=== PATIENT | female | born 1950 | race Caucasian/White ===

== ENCOUNTER 2018-07-30 11:17 | Emergency (ER) | payer MEDICARE, BC ==
--- OUTSIDE RECORDS SUMMARY | 2018-07-30 11:24 | XMS REPORT | Continuity of Care Document ---
:1950 External Reference #:[id number] Author Name Juve Fam, OD Address [address] [place] [address] Care Team Providers Name Role Phone Claudio JONES, Shaista Care Team Information Electric Serviceman Unavailable Shaista Snyder MD Primary Care Physician Unavailable Payers Date Identification Numbers Payment Provider Subscriber Policy Number: [id number] [employer] [place] PayID: [id number] [address] [place] [address] Policy Number: [id number] [employer] [place] [employer] PayID: [id number] [address] [place] [address] Advance Directives Description No Information Available Problems Date Description Provider Status Onset: 05/11/2013 Regular astigmatism Arjun Bailey M.D. Active Onset: 05/11/2013 Vitreous degeneration Arjun Bailey M.D. Active Onset: 05/11/2013 Open-angle glaucoma Arjun Bailey M.D. 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 Active stage Onset: 06/24/2015 Other chorioretinal scars, left eye Arjun Bailey M.D. Active Family History Date Family Member(s) Observation Comments Father High BP Father Diabetes Father Heart Disease Father Cancer Mother Cataract Mother Cancer Social History Type Date Description Comments Sex Unknown ETOH Use Denies alcohol use Tobacco Use Start: Unknown Patient has never smoked Smoking Status Reviewed: 07/12/18 Patient has never smoked Allergies, Adverse Reactions, Alerts Date Description Reaction Status Severity Comments 05/11/2013 Penicillin Active 05/24/2014 Sulfa Antibiotics Active 05/24/2014 Bactrim Active 05/24/2014 Keflex Active 07/08/2016 Xarelto Active Medications Medication Date Status Form Strength Qnty SIG Indications Ordering Provider Latanoprost 12/17 Active Solution 0.005% 7.5un 1 drops Juve its both Fam, eyes OD every night Timolol Maleate 07/12 Active GFS 0.5% 15ml one drop Juve Ophthalmic Gel every Fam, Forming morning OD OD only Alendronate Sodium Active Tablets 70mg Stulb, /0000 Shaka JONES Sertraline HCL Active Tablets 100mg Stulb, /0000 Shaka JONES Omeprazole Active Capsules 20mg Stulb, /0000 DR Shaka JONES Hydrochlorothiazide Active Tablets 25mg Hannah, /0000 Agueda Jean Vesicare Active Tablets 5mg Jann, /0000 Norma Warfarin Sodium Active Tablets 5mg Trae, /0000 JUAN ALBERTO Perea Poly-Iron 150 Active Capsules 150mg Take One Unknown /0000 Capsule By Mouth Every Day Vitamin C Active Capsules 500mg Unknown /0000 Latanoprost 05/10 Hx Solution 0.005% 2.5un Instill its One Drop Bailey, - In Each M.D. 12/17 Eye AT Bedtime Xarelto Hx Tablets 20mg Take One Unknown /0000 Tablet - By Mouth 07/08 Day Immunizations Description No Information Available Vital Signs Date Vital Result Comment 07/12/2018 8:49am Intraocular Pressure Right Eye 12 mmHg Intraocular Pressure Left Eye 12 mmHg 04/13/2018 9:15am Intraocular Pressure Right Eye 12 mmHg Intraocular Pressure Left Eye 13 mmHg 01/12/2018 9:12am Intraocular Pressure Right Eye 11 mmHg Intraocular Pressure Left Eye 13 mmHg 10/12/2017 8:27am Intraocular Pressure Right Eye 14 mmHg Intraocular Pressure Left Eye 16 mmHg 07/12/2017 10:02am Intraocular Pressure Right Eye 17 mmHg Intraocular Pressure Left Eye 16 mmHg 04/12/2017 9:29am Intraocular Pressure Right Eye 16 mmHg Intraocular Pressure Left Eye 16 mmHg 01/11/2017 9:15am Intraocular Pressure Right Eye 14 mmHg Intraocular Pressure Left Eye 13 mmHg 10/09/2016 9:14am Intraocular Pressure Right Eye 15 mmHg Intraocular Pressure Left Eye 15 mmHg 07/08/2016 8:13am Intraocular Pressure Right Eye 14 mmHg Intraocular Pressure Left Eye 13 mmHg 04/08/2016 8:12am Intraocular Pressure Right Eye 14 mmHg Intraocular Pressure Left Eye 13 mmHg 10/04/2015 8:32am Intraocular Pressure Right Eye 15 mmHg Intraocular Pressure Left Eye 13 mmHg 06/24/2015 10:45am Intraocular Pressure Right Eye 14 mmHg Intraocular Pressure Left Eye 14 mmHg 03/21/2015 8:48am Intraocular Pressure Right Eye 15 mmHg Intraocular Pressure Left Eye 14 mmHg 12/07/2014 2:32pm Intraocular Pressure Right Eye 16 mmHg Intraocular Pressure Left Eye 15 mmHg 08/27/2014 8:57am Intraocular Pressure Right Eye 16 mmHg Intraocular Pressure Left Eye 15 mmHg 05/24/2014 9:12am Intraocular Pressure Right Eye 15 mmHg Intraocular Pressure Left Eye 14 mmHg 02/21/2014 8:07am Intraocular Pressure Right Eye 16 mmHg Intraocular Pressure Left Eye 13 mmHg 11/17/2013 9:09am Intraocular Pressure Right Eye 16 mmHg Intraocular Pressure Left Eye 12 mmHg 08/18/2013 8:45am Intraocular Pressure Right Eye 16 mmHg Intraocular Pressure Left Eye 14 mmHg 05/11/2013 10:04am Intraocular Pressure Right Eye 15 mmHg Intraocular Pressure Left Eye 13 mmHg Results Description No Information Available Procedures Date Code Description Status 07/12/2018 82415 Fundus Photography W/Interpretation & Report Completed 07/12/2018 46264 Refraction Completed 07/12/2018 75988 Eye Exam Est Comprehensive Completed 04/13/2018 93956 Eye Exam Est Intermediate Completed 01/12/2018 43325 Oct, Optic Nerve Completed 01/12/2018 04207 Eye Exam Est Intermediate Completed 10/12/2017 46560 Visual Field Exam Extended, Unilateral Or Bilateral Completed 10/12/2017 05773 Eye Exam Est Intermediate Completed 07/12/2017 91230 Eye Exam Est Comprehensive Completed 07/12/2017 95045 Refraction Completed 07/12/2017 21313 Ophthalmoscopy Subsequent Completed 07/12/2017 19365 Fundus Photography W/Interpretation & Report Completed 04/12/2017 10816 Eye Exam Est Intermediate Completed 01/11/2017 12110 Oct, Optic Nerve Completed 01/11/2017 17894 Eye Exam Est Intermediate Completed 10/09/2016 14093 Visual Field Exam Extended, Unilateral Or Bilateral Completed 10/09/2016 71288 Eye Exam Est Intermediate Completed 07/08/2016 61512 Eye Exam Est Comprehensive Completed 07/08/2016 41617 Ophthalmoscopy Subsequent Completed 07/08/2016 04285 Fundus Photography W/Interpretation & Report Completed 04/08/2016 42418 Eye Exam Est Intermediate Completed 01/07/2016 26296 Oct, Optic Nerve Completed 01/07/2016 50584 Oct, Optic Nerve Completed 10/04/2015 19896 Visual Field Exam Extended, Unilateral Or Bilateral Completed 10/04/2015 98015 Eye Exam Est Intermediate Completed 06/24/2015 05132 Fundus Photography W/Interpretation & Report Completed 06/24/2015 87124 Eye Exam Est Comprehensive Completed 03/21/2015 97099 Eye Exam Est Intermediate Completed 12/07/2014 77282 Oct, Optic Nerve Completed 12/07/2014 86742 Eye Exam Est Intermediate Completed 08/27/2014 77794 Visual Field Exam Extended, Unilateral Or Bilateral Completed 08/27/2014 00527 Eye Exam Est Intermediate Completed 05/24/2014 19451 Eye Exam Est Comprehensive Completed 05/24/2014 79855 Refraction Completed 05/24/2014 76742 Ophthalmoscopy Subsequent Completed 05/24/2014 29043 Fundus Photography W/Interpretation & Report Completed 02/21/2014 32384 Eye Exam Est Intermediate Completed 11/17/2013 98634 Oct, Optic Nerve Completed 11/17/2013 42114 Eye Exam Est Intermediate Completed 08/18/2013 79608 Visual Field Exam Extended, Unilateral Or Bilateral Completed 08/18/2013 46215 Eye Exam Est Intermediate Completed 05/11/2013 77763 Eye Exam Est Intermediate Completed 05/11/2013 36969 Refraction Completed 05/11/2013 88530 Ophthalmoscopy Subsequent Completed 05/11/2013 20684 Fundus Photography W/Interpretation & Report Completed 08/06/2011 35247 Visual Field Exam Extended, Unilateral Or Bilateral Completed 08/06/2011 30593 Eye Exam Est Intermediate Completed 04/30/2011 41775 Ophthalmoscopy Subsequent Completed 04/30/2011 46461 Eye Exam Est Intermediate Completed 10/24/2010 58950 Ophthalmoscopy Subsequent Completed 10/24/2010 72763 Eye Exam Est Intermediate Completed 10/02/2010 91567 Eye Exam Est Comprehensive Completed 10/02/2010 19480 Ophthalmoscopy Subsequent Completed 07/02/2010 01579 Visual Field Exam Extended, Unilateral Or Bilateral Completed 07/02/2010 11192 Eye Exam Est Intermediate Completed 05/01/2010 30822 Fundus Photography W/Interpretation & Report Completed 05/01/2010 23006 Ophthalmoscopy Subsequent Completed 05/01/2010 07726 Eye Exam Est Comprehensive Completed 05/01/2010 17533 Corneal Pachymetry, Unilateral/Bilateral Completed 12/06/2009 82129 Eye Exam Est Intermediate Completed 09/06/2009 39367 Eye Exam Est Intermediate Completed 05/31/2009 61754 Eye Exam Est Intermediate Completed 05/09/2009 71221 Visual Field Exam Extended, Unilateral Or Bilateral Completed 05/09/2009 22910 Eye Exam Est Intermediate Completed 05/01/2009 09708 Fundus Photography W/Interpretation & Report Completed 05/01/2009 45695 Ophthalmoscopy Initial Completed 05/01/2009 31394 Refraction Completed 05/01/2009 46199 Eye Exam New Comprehensive Completed 05/01/2009 11443 Corneal Pachymetry, Unilateral/Bilateral Completed Encounters Description No Information Available Plan of Treatment 07/12/2018 - Juve Fam, [id number] Primary open-angle glaucoma, bilateral, moderate vegvfA28.092 Other chorioretinal scars, left eyeH25.13 Age-related nuclear cataract, mipcwoicgD27.813 Vitreous degeneration, bilateralFollow up:3 mos VF, sooner PRNH52.13 Myopia, bilateral
[2018-07-30 11:45] VITALS: BP 139/81
--- NOTE | 2018-07-30 12:02 | UC ---
Throat Pain/Nasal Darian HPI - HPI Summary HPI Summary: Patient has been ill with a severe cold for over one week and the past 24 hours she has developed sinus pressure with purulent nasal discharge. - History of Current Complaint Chief Complaint: UCRespiratory Stated Complaint: SINUS ISSUE Time Seen by Provider: 07/30/18 12:01 Hx Obtained From: Patient ?: No Onset/Duration: Gradual Onset - Ill for more than one week. Severity: Moderate Pain Intensity: 5 Cough: None Associated Signs & Symptoms: Positive: Sinus Discomfort, Nasal Discharge - Epiglottits Risk Factors Epiglottis Risk Factors: Negative - Allergies/Home Medications Allergies/Adverse Reactions: Allergies Allergy/AdvReac Type Severity Reaction Status Date / Time cephalexin [From Keflex] Allergy Blisters Verified 07/30/18 11:46 levofloxacin [From Levaquin] Allergy Shakes Verified 07/30/18 11:46 Penicillins Allergy Hives Verified 07/30/18 11:46 Sulfa (Sulfonamide Allergy Shakes Verified 07/30/18 11:46 Antibiotics) trazodone Allergy Unknown Verified 07/30/18 11:46 Reaction Details Home Medications: Home Medications Timolol 0.5% OPTH.JOAN* [Timoptic 0.5% Opth*] 1 drop RIGHT EYE QAM 07/30/18 [ History Confirmed 07/30/18] PMH/Surg Hx/FS Hx/Imm Hx Previously Healthy: Yes Respiratory History: Other - DVT 3 years ago. - Surgical History Surgical History: None Surgery Procedure, Year, and Place: HYSTERECTOMY 1986. FOOT SX: BUNIONECTOMY, TOE STRAIGHTENING. 2007- RIGHT KNEE REPLACEMENT AND CHOLECYSTECTOMY. BREAST BIOPSY 70'S - BENIGN. VARICOSE VEIN SURG. 2016 - blood clot in right leg w/ stent placements - Family History Known Family History: Positive: Hypertension - PGM, Other - mother had stroke - Social History Alcohol Use: None Substance Use Type: None Smoking Status (MU): Never Smoked Tobacco - Immunization History Most Recent Influenza Vaccination: THIS YEAR Review of Systems All Other Systems Reviewed And Are Negative: Yes ENT: Positive: Nasal Discharge, Sinus Congestion, Sinus Pain/Tenderness Respiratory: Positive: Negative Cardiovascular: Positive: Negative Psychological: Positive: Negative Is Patient Immunocompromised?: No Physical Exam Appearance: Well-Appearing, No Pain Distress, Well-Nourished Vital Signs: Initial Vital Signs Temp 98.5 F 07/30/18 11:42 Pulse 71 07/30/18 11:42 Resp 18 07/30/18 11:42 BP 139/81 07/30/18 11:42 Pulse Ox 97 07/30/18 11:42 Vital Signs Reviewed: Yes Eye Exam: Normal ENT: Positive: Hearing grossly normal, Pharynx normal, Nasal congestion, Nasal drainage - Yellow purulent nasal coryza, TMs normal, Sinus tenderness - Clarey and frontal sinus tenderness.. Negative: Tonsillar swelling, Tonsillar exudate , Trismus, Muffled voice, Hoarse voice Neck exam: Normal Neck: Positive: Supple, Nontender, No Lymphadenopathy Respiratory Exam: Normal Cardiovascular Exam: Normal Musculoskeletal Exam: Normal Neurological Exam: Normal Psychological Exam: Normal Skin Exam: Normal Throat Pain/Nasal Course/Dx - Course Course Of Treatment: Patient has been comfortable here. I am going to put her on doxycycline. We discussed her not taking her medications 2 hours before and 2 hours after doxycycline as well as not taking any dairy products or antacids. She is to call her primary care provider on Wednesday to advise him she is on doxycycline to see if they need to adjust her warfarin dose. - Differential Dx/Diagnosis Provider Diagnosis: Sinusitis Discharge - Sign-Out/Discharge Documenting (check all that apply): Patient Departure All imaging exams completed and their final reports reviewed: No Studies - Discharge Plan Condition: Fair Disposition: HOME Prescriptions: DOXYcycline CAP(*) [DOXYcycline 100MG CAP(*)] 100 mg PO BID 10 Days #20 cap Patient Education Materials: Sinusitis (ED) Referrals: Chrissy Snyder MD [Primary Care Provider] - Additional Instructions: Avoid taking your medicines or any dairy products or antacids 2 hours before doxycycline and 2 hours after doxycycline however you do want to take the doxycycline with food to avoid an upset stomach. Definite telephone call to your primary care provider on Wednesday to let them know you are taking doxycycline and their opinion regarding your warfarin dose. Follow-up with your primary care provider in for 5 days if no improvement. - Billing Disposition and Condition Condition: FAIR Disposition: Home - Attestation Statements Provider Attestation: I was available for consult. This patient was seen by the BERNICE. The patient was not presented to, seen by, or examined by me. -Migue
== END 2018-07-30 12:30 | disposition home or self-care (01) ==
LOC: UCEAST 11:17
DX: J01.90 Acute sinusitis, unspecified (principal); Z88.3 Allergy status to other anti-infective agents; Z88.0 Allergy status to penicillin; Z88.2 Allergy status to sulfonamides; Z88.8 Allergy status to other drugs, medicaments and biological substances
CPT/HCPCS: 99212; G0463

== ENCOUNTER 2023-07-09 10:05 | Observation (INO) ==
[2023-07-09] MEDS ORDERED: fentaNYL 100 mcg/2 ml 50 MCG/ML VIAL ONE ×6 (10:17→15:38)
[2023-07-09] MEDS ORDERED: Lidocaine 2% PF 5 ML VIAL ONE (10:17)
[2023-07-09] MEDS ORDERED: Propofol 10 MG/ML 20 ML BTL ONE ×4 (10:17→15:00)
[2023-07-09] MEDS ORDERED: Midazolam 2 mg/2 ml VIAL 1 mg/ml 2 ml VIAL (2 mg) ONE (10:19)
[2023-07-09 11:07] LABS: Rapid COVID-19 Molecular Undetected (Undetected)
[2023-07-09] MEDS ORDERED: ceFAZolin *3* GM in NS PREMIX 3 GM/100 ML BAG IV ONE (11:40)
[2023-07-09] MEDS ORDERED: Tranexamic Acid 1 GM/100ML BAG 2,000 MG/200 ML BAG IV ONE (11:40)
[2023-07-09 11:56] LABS: INR 1.28 (0.83-1.13)
[2023-07-09] MEDS: Lactated Ringers 1000 ml BAG 1,000 ML IV SCH ×2 (12:01→18:55)
[2023-07-09] MEDS: Buffered Lidocaine 1% SYRIN 1 ml INTRADERM ONE (12:01)
[2023-07-09] MEDS ORDERED: ROPIVACAINE 5 MG/ML 30 ML BTL (0.5%) ONE ×2 (12:15→16:17)
[2023-07-09] MEDS ORDERED: Dexamethasone IV 4 MG/ML VIAL 1 ml VIAL ONE (13:00)
[2023-07-09] MEDS ORDERED: Ondansetron 4 mg VIAL 2 MG/ML 2 ml VIAL ONE (13:00)
[2023-07-09] MEDS ORDERED: Rocuronium 50 mg VIAL 10 mg/ml 5 ml VIAL (50 mg) ONE ×2 (13:00→13:28)
[2023-07-09] MEDS ORDERED: Naloxone 0.4 mg VIAL 0.4 mg/ml 1 ml VIAL IV PRN (14:07)
[2023-07-09] MEDS ORDERED: fentaNYL 100 mcg/2 ml 50 MCG/ML VIAL IV PRN (14:07)
[2023-07-09] MEDS ORDERED: Prochlorperazine 5 mg/ml 2 ml VIAL (10 mg) IV PRN (14:07)
[2023-07-09] MEDS ORDERED: Ondansetron 4 mg VIAL 2 MG/ML 2 ml VIAL IV PRN (15:25)
[2023-07-09] MEDS ORDERED: Magnesium Hydroxide LIQ 30 ML UDC PO PRN (15:25)
[2023-07-09] MEDS ORDERED: Ondansetron ODT 4 mg TAB 4 MG TAB PO PRN (15:25)
[2023-07-09] MEDS ORDERED: Lactulose 30 ml UDC PO PRN (15:25)
[2023-07-09] MEDS ORDERED: Morphine 2 MG/ML SYRINGE IV PRN (15:32)
[2023-07-09] MEDS ORDERED: Morphine 4 MG/ML VIAL (1 ml) ONE (16:44)
[2023-07-09] MEDS: Morphine 4 MG/ML VIAL (1 ml) IV PRN (16:45)
[2023-07-09] MEDS: Magnesium Chloride EC 64 mgTAB PO SCH (20:30)
[2023-07-09] MEDS: Potassium Chlor 20 meq TAB.ER PO SCH (20:30)
[2023-07-09] MEDS: ceFAZolin 1 GM ADVAN 1 GM in NS 0.9% 50 ML 50 ML IVPB SCH (20:38)
[2023-07-09] MEDS: Timolol 0.5% OPTH.SOL BTL BOTH EYES SCH (20:41)
[2023-07-09] MEDS: Latanoprost 0.005% 2.5 ml BTL BOTH EYES SCH (20:46)
[2023-07-09] MEDS: Magnesium Hydroxide LIQ 30 ML UDC PO SCH (20:52)
[2023-07-10 05:12] LABS: Hematocrit 31.5 % (35-45); Hemoglobin 10.4 g/dL (11.5-14.3); Mean Platelet Volume 8.2 fL (7.5-11.2); Platelet Count 221 10^3/uL (150-450)
[2023-07-10 05:39] LABS: Calcium 8.1 mg/dL (8.6-10.3); Creatinine, Serum 0.71 mg/dL (0.51-0.95); Potassium 4.5 mmol/L (3.5-5.0); eGFR CKD-EPI 89.7 (>60)
[2023-07-10] MEDS: CMCS: Solifenacin 5 mg TAB (NF) PO SCH (08:16)
[2023-07-10] MEDS: Vitamin THERAPEUTIC TAB PO SCH (08:16)
[2023-07-10 08:52] LABS: INR 1.3 (0.83-1.13)
[2023-07-10 10:10] VITALS: BP 110/66
== END 2023-07-10 13:20 | disposition home or self-care (01) ==
LOC: SSU 10:05 → OR 10:05
PROVIDERS: ADMIT Orthopaedic Surgery Adult Reconstructive Orthopaedic Surgery; ATTEND Orthopaedic Surgery Adult Reconstructive Orthopaedic Surgery